=== PATIENT | male | born 1990 | race Caucasian/White ===

== ENCOUNTER 2021-11-13 09:57 | Emergency (ER) | payer OTHER ==
[~2021-11-13] VITALS: Ht 180.3 cm; Wt 108.9 kg
--- NOTE | 2021-11-13 10:00 | NUR ---
Ariana faust in ED - 11/13/21 at 1103 by [id number] dR RUSSO AT BEDSIDE TO ASSESS PT
--- NOTE | 2021-11-13 10:10 | NUR ---
ER at bedside examining patient.
[2021-11-13 10:13] VITALS: BP_SYST 149
--- NOTE | 2021-11-13 10:13 | NUR ---
Placed in room 4 . Placed on director of cardiac cath lab, blood pressure machine and pulse oximeter. To gown for exam. Side rails up. Report given to
[2021-11-13] MEDS ORDERED: NACL 0.9% 2,000 ML IV ONE (10:15)
[2021-11-13] MEDS ORDERED: LORazepam 2 MG/ML VIAL IVP ONE ×2 (10:15→14:00)
--- NOTE | 2021-11-13 10:20 | NUR ---
BLOOD DRAWN BY LAB
--- NOTE | 2021-11-13 10:25 | NUR ---
IV STARTED IN L HAND BY THIS RN. 20G GOOD BLOOD RETRUN FLUSHES EASILY.
[2021-11-13 10:42] LABS: BASOPHILS # (AUTO) 0.1 K/uL (0.0-0.2); BASOPHILS % (AUTO) 0.4 % (0.0-2.0); EOSINOPHILS # (AUTO) 0.1 K/uL (0.0-0.4); EOSINOPHILS % (AUTO) 0.4 % (0.0-4.0); HEMATOCRIT 40.7 % (36-54); LYMPHOCYTES # (AUTO) 2.3 K/uL (1.0-5.5); LYMPHOCYTES % (AUTO) 16.7 % (20.5-51.5); MEAN CORPUSCULAR VOLUME 90 fL (79.0-98.0); MONOCYTES # (AUTO) 0.7 K/uL (0.0-1.0); MONOCYTES % (AUTO) 5.3 % (1.7-9.3); NEUTROPHILS # (AUTO) 10.8 K/uL (1.8-7.7); NEUTROPHILS % (AUTO) 77.2 % (40.0-70.0); PLATELET COUNT (AUTO) 262 K/uL (130-430); RED BLOOD CELL COUNT(AUTO) 4.54 MIL/uL (4.2-6.2); RED CELL DISTRIBUTION WIDTH 13.2 % (9.0-15.0)
[2021-11-13 11:11] LABS: ANION GAP 14 (5-15); CALCIUM 9.6 mg/dL (8.4-11.0); CHLORIDE 103 mmol/L (98-107); CREATININE 1.14 mg/dL (0.55-1.30); GLUCOSE 137 mg/dL (70-99); POTASSIUM 3.9 mmol/L (3.5-5.1); UREA NITROGEN, BLOOD 15 mg/dL (8-21)
[2021-11-13 11:17] LABS: ALANINE AMINOTRANSFERASE 25 U/L (12-78); ALBUMIN 4.4 g/dL (3.4-4.8); AMYLASE 62 U/L (0-100); ASPARTATE AMINOTRANSFERASE 24 U/L (10-37); LIPASE 79 U/L (73-393); TOTAL BILIRUBIN 0.5 mg/dL (0.0-1.0)
[2021-11-13 11:24] LABS: ALCOHOL, BLOOD < 3 mg/dL (<10); GFR AFRICAN AMERICAN 98 mL/min (>90)
--- NOTE | 2021-11-13 12:30 | NUR ---
PT RESTING, NO APPARENT DISTRESS, MOTHER AT BEDSIDE.AWAITING LAB RESULTS
[2021-11-13 12:39] LABS: ACETONE, SERUM NEGATIVE (NEGATIVE)
[2021-11-13] MEDS ORDERED: LORA-259 PO (13:50)
--- NOTE | 2021-11-13 13:50 | NUR ---
PT STATES THAT HE IS FEELING MORE SHAKEY AND ANXIOUS, ALSO HAS STARTED VOMITING AGAIN. DR RUSSO NOTIFIED
[2021-11-13] MEDS ORDERED: ONDANSETRON HCL 4 MG/2 ML VIAL IVP ONE (14:00)
[2021-11-13] MEDS ORDERED: HALOPERIDOL LACTATE 5 MG/ML VIAL ONE (14:10)
[2021-11-13] MEDS ORDERED: OMEP20CA15 PO (14:15)
[2021-11-13] MEDS ORDERED: METO-290 PO (14:15)
[2021-11-13] MEDS ORDERED: HALOPERIDOL LACTATE 5 MG/ML VIAL IM ONE (14:15)
--- NOTE | 2021-11-13 14:15 | NUR ---
PATIENT IS SR ON THE MONITOR WITH STABLE VS, STILL COMPLAINTS OF NAUSEA. HALDOL IM GIVEN PER DR. RUSSO, WITHOUT ISSUES, ON FORENSIC TOXICOLOGIST
--- NOTE | 2021-11-13 15:35 | NUR ---
pt dc'd to home. DC instructions reviewed with instruction in picking and taking x2 Rxd meds. Pt instructed in PO intake with vomiting. Pt verbalized understanding. IV DC'd pressure held to site No bleeding or hematoma present. Pt ambulatory without diff, Mother with Pt, Pt gait is steady, resp easy mm pink, no apparent distress
[2021-11-13 15:38] VITALS: BP_SYST 122
== END 2021-11-13 15:35 | disposition home or self-care (01) ==
LOC: SED 09:57
DX: F10.10 Alcohol abuse, uncomplicated (principal); R10.10 Upper abdominal pain, unspecified; R11.2 Nausea with vomiting, unspecified; Y90.0 Blood alcohol level of less than 20 mg/100 ml
CPT/HCPCS: 99284; 96374; 96361; 80053; 82009; 82150; 83690; 85025; 36415; 96372; 83605; G0482; J1630; J2060; J7030